=== PATIENT | female | born 1960 | race Caucasian/White ===

== ENCOUNTER 2018-01-15 09:27 | Emergency (ER) | payer OTHER ==
[~2018-01-15] VITALS: Ht 167.6 cm; Wt 70.3 kg
[2018-01-15] MEDS ORDERED: SINGULAIR 10 MG10 M1 PO (09:53)
[2018-01-15] MEDS ORDERED: LIPITOR10 MG PO (09:54)
[2018-01-15] MEDS ORDERED: NORCO 5-325 TA1 EACH PO (11:03)
[2018-01-15 11:30] VITALS: BP 117/60
== END 2018-01-15 11:47 | disposition home or self-care (01) ==
LOC: M.ERS 09:27
DX: S92.352A Displaced fracture of fifth metatarsal bone, left foot, initial encounter for closed fracture (principal); Z88.5 Allergy status to narcotic agent; Z88.0 Allergy status to penicillin; Z88.8 Allergy status to other drugs, medicaments and biological substances; W18.39XA Other fall on same level, initial encounter; Y93.89 Activity, other specified; Y92.511 Restaurant or cafe as the place of occurrence of the external cause; Y99.8 Other external cause status

== ENCOUNTER → 2018-01-30 | Outpatient (CLI) | payer OTHER ==
[~2018-01-30] MED LIST: LIPITOR10 MG PO; NORCO 5-325 TA1 EACH PO; SINGULAIR 10 MG10 M1 PO
== END ==
LOC: M.RAD 14:30
DX: S92.355D Nondisplaced fracture of fifth metatarsal bone, left foot, subsequent encounter for fracture with routine healing (principal); X58.XXXD Exposure to other specified factors, subsequent encounter

== ENCOUNTER → 2018-02-27 | Outpatient (CLI) | payer OTHER | LOC: M.RAD 13:23 | DX: S92.352D Displaced fracture of fifth metatarsal bone, left foot, subsequent encounter for fracture with routine healing (principal); X58.XXXD Exposure to other specified factors, subsequent encounter ==

== ENCOUNTER → 2018-09-01 | Outpatient (CLI) | payer OTHER | LOC: M.ULTRA 07:24 | DX: R10.9 Unspecified abdominal pain (principal); R14.0 Abdominal distension (gaseous) ==

== ENCOUNTER 2019-06-05 18:30 | Emergency (ER) | payer OTHER ==
[~2019-06-05] VITALS: Ht 167.6 cm; Wt 70.3 kg
[2019-06-05] MEDS ORDERED: BUSPIRONE HCL5 MG PO (18:51)
[2019-06-05] MEDS ORDERED: ELLIPTA (18:51)
[2019-06-05] MEDS ORDERED: SYNTHROID112 MC1 PO (18:52)
[2019-06-05 20:24] LABS: BE -1.9 mmol/L (-2 to +3); PCO2 34.5 mmHg (35.0-45.0); PO2 79.4 mmHg (75.0-100.0)
[2019-06-05 20:35] LABS: ABSOLUTE BASOPHILS 0.1 thou/uL (0.0-0.2); ABSOLUTE EOSINOPHILS 0.2 thou/uL (0.0-0.7); ABSOLUTE LYMPHOCYTES 4.4 thou/uL (0.8-5.3); ABSOLUTE MONOCYTES 0.8 thou/uL (0.0-1.2); ABSOLUTE NEUTROPHILS 6.3 thou/uL (1.6-8.1); BASOPHILS 0.8 %; EOSINOPHILS 2.1 %; HEMATOCRIT 41.2 % (37.0-47.0); HEMOGLOBIN 13.6 gm/dL (12.0-15.0); LYMPHOCYTES 36.9 %; MCH 27.6 pg (26.0-34.0); MCHC 32.9 g/dL (28.0-37.0); MCV 83.7 fL (80.0-100.0); MONOCYTES 6.5 %; MPV 9.3 fl. (7.2-11.1); NUCLEATED RBCS 0 /100WBC; PLATELET COUNT* 236 thou/uL (150-400); POLYS 53.7 %; RBC 4.92 mil/uL (4.20-5.00); RDW-CV 14.8 % (10.5-14.5); WBC 11.8 thou/uL (4.0-11.0)
[2019-06-05 20:50] LABS: CALCIUM 8.8 mg/dL (8.5-10.1); CREATININE 0.8 mg/dL (0.6-1.3); POTASSIUM 3.4 mmol/L (3.5-5.1)
[2019-06-05 20:54] LABS: ALBUMIN 3.7 g/dL (3.4-5.0); MAGNESIUM 1.9 mg/dL (1.8-2.4); TOTAL BILIRUBIN 0.3 mg/dL (<0.1-1.0); TOTAL PROTEIN 7.1 g/dL (6.4-8.2)
[2019-06-05 21:57] LABS: URINE BILIRUBIN NEGATIVE (Negative); URINE BLOOD 2+ (Negative); URINE CLARITY CLEAR; URINE COLOR YELLOW; URINE GLUCOSE-RANDOM NEGATIVE (Negative); URINE KETONES NEGATIVE (Negative); URINE LEUKOCYTES-REFLEX NEGATIVE (Negative); URINE NITRITE-REFLEX NEGATIVE (Negative); URINE PROTEIN NEGATIVE (Negative); URINE UROBILINOGEN 0.2 E.U./dl (0.2-1.0)
[2019-06-05 22:04] LABS: CASTS None Seen /LPF (None Seen); MUCUS None Seen strn/LPF (None Seen); SQUAMOUS 0-3 Few /LPF (0-3)
[2019-06-05 22:05] LABS: BACTERIA-REFLEX None Seen /HPF (None Seen); CRYSTALS None Seen /LPF (None Seen); URINE RBC 3-10 Few /HPF (0-2); URINE WBC-REFLEX None Seen /HPF (0-5)
[2019-06-05] MEDS ORDERED: AMBIEN 5 MG TABL5 M1 PO (22:09)
[2019-06-05 22:16] VITALS: BP 107/49
== END 2019-06-05 22:18 | disposition home or self-care (01) ==
LOC: M.ERS 18:30
PROVIDERS: Personal Emergency Response Attendant
DX: F41.9 Anxiety disorder, unspecified (principal); E78.00 Pure hypercholesterolemia, unspecified; E03.9 Hypothyroidism, unspecified; R35.0 Frequency of micturition; J02.9 Acute pharyngitis, unspecified; R13.10 Dysphagia, unspecified; Z88.0 Allergy status to penicillin; Z88.5 Allergy status to narcotic agent

== ENCOUNTER → 2019-12-28 | Outpatient (CLI) | payer OTHER ==
[~2019-12-28] MED LIST changes: +AMBIEN 5 MG TABL5 M1 PO; +BUSPIRONE HCL5 MG PO; +ELLIPTA; +SYNTHROID112 MC1 PO
== END ==
LOC: M.ULTRA 09:17
DX: H93.A3 Pulsatile tinnitus, bilateral (principal)